=== PATIENT | male | born 1995 | race African-American/Black ===

== ENCOUNTER 2023-03-18 15:43 | Emergency (ER) | payer OTHER ==
[~2023-03-18] VITALS: Ht 177.8 cm; Wt 85.0 kg
[2023-03-18 16:00] VITALS: O2SAT 99
[2023-03-18] MEDS ORDERED: ONDANSETRON HCL 4MG/2ML INJ IV ONE (16:00)
[2023-03-18] MEDS ORDERED: LACTATED RINGERS 1,000 ML IV SCH (16:00)
[2023-03-18] MEDS ORDERED: ACETAMINOPHEN 325MG TABLET PO ONE (16:00)
[2023-03-18 16:33] LABS: DIFFERENTIAL COMMENT 1; HEMOGLOBIN. 15.8 g/dL (14.0-18.0); MEAN CORPUSCULAR HEMOGLOBIN 26.6 pg (28.0-32.0); MEAN CORPUSCULAR HGB CONC 31.6 g/dL (31.0-37.0); MEAN CORPUSCULAR VOLUME 84.2 fL (80.0-94.0); MEAN PLATELET VOLUME 8.8 fl (7.4-10.4); PLATELET 242 x1000/uL (130-400); RED BLOOD CELL COUNT 5.95 mill/uL (4.7-6.1); RED CELL DISTRIBUTION WIDTH 14.1 % (11.6-14.6); WHITE BLOOD COUNT 11.7 x1000/uL (4.5-11.0)
[2023-03-18 16:49] LABS: ALANINE AMINOTRANSFERASE 55 IU/L (10-49); ALBUMIN 4.6 g/dL (3.2-4.8); ASPARTATE AMINOTRANSFERASE 41 IU/L (<34); BILIRUBIN TOTAL 1.2 mg/dL (0.1-1.0); CALCIUM 9.5 mg/dL (8.7-10.4); CARBON DIOXIDE 28 mEq/L (21-32); CHLORIDE 104 mEq/L (98-107); CREATININE 1.1 mg/dL (0.6-1.3); GLUCOSE 101 mg/dL (70-105); PLATELET ESTIMATE NORMAL; POTASSIUM 3.9 mEq/L (3.5-5.1); PROTEIN TOTAL 7.4 g/dL (6.0-8.3); SODIUM 138 mEq/L (136-145); UREA NITROGEN BLOOD 16 mg/dL (9-23)
[2023-03-18] MEDS ORDERED: ONDA4TAB11 PO (19:12)
[2023-03-18 19:36] VITALS: BP 129/66; PULSE 94; RESP 16; TEMP 98.8
== END 2023-03-18 19:38 | disposition home or self-care (01) ==
LOC: ER 15:43
DX: R10.11 Right upper quadrant pain (principal); R11.2 Nausea with vomiting, unspecified
CPT/HCPCS: 80053; 83690; 85025; 36415; 76705; 96361; 96374; 99285; J2405; Z7610 ×4